=== PATIENT | female | born 1990 | race Caucasian/White ===

== ENCOUNTER 2018-11-02 07:35 | Emergency (ER) | payer BC, OTHER ==
[2018-11-02] MEDS: ONDANSETRON (ODT) 4 MG TAB ODT (07:52)
[2018-11-02 08:34] LABS: URINE PH (Dip) POC 6.5 (5.0-8.5)
[2018-11-02 08:34] LABS: URINE BLOOD (Dip) POC 3+ (NEGATIVE); URINE GLUCOSE (Dip) POC Negative (NEGATIVE); URINE KETONES (Dip) POC Negative (NEGATIVE); URINE LEUKOCYTE EST (Dip) POC 2+ (NEGATIVE); URINE NITRITE (Dip) POC Negative (NEGATIVE); URINE TOTAL PROTEIN POC 1+ (NEGATIVE)
[2018-11-02] MEDS: KETOROLAC 30 MG INJ IM (08:39)
== END 2018-11-02 08:55 | disposition home or self-care (01) ==
LOC: FTE 07:35
DX: N30.91 Cystitis, unspecified with hematuria (principal)
CPT/HCPCS: 81003; 81025; 87086; 96372; 99284-25